=== PATIENT | female | born 1985 | race Caucasian/White ===

== ENCOUNTER 2021-11-29 03:59 | Inpatient (IN) ==
[2021-11-29] MEDS ORDERED: Naloxone 0.4 MG/ML INJ IVP PRN (04:01)
[2021-11-29] MEDS ORDERED: *HR* Nalbuphine 10 MG/ML AMPUL IV PRN (04:01)
[2021-11-29] MEDS ORDERED: Ondansetron 4 MG/2 ML VIAL IVP PRN (04:01)
[2021-11-29] MEDS ORDERED: Lidocaine 1% 20 ML MDV INFILT PRN (04:01)
[2021-11-29] MEDS ORDERED: miSOPROStoL 25 MCG TABLET PO PRN (04:01)
[2021-11-29] MEDS ORDERED: Famotidine 20 MG/2 ML VIAL IVP PRN (04:01)
[2021-11-29] MEDS ORDERED: Metoclopramide 10 MG/2 ML VIAL IVP PRN (04:01)
[2021-11-29 05:02] LABS: Basophils % 0.4 %; Eosinophils # 0.3 K/mcL (0.0-0.6); Eosinophils % 2.8 %; Hematocrit 35.6 % (35.3-44.9); Hemoglobin 11.4 g/dL (11.5-15.4); Immature Granulocytes % 1.5 % (0-4); Lymphocytes # 2.3 K/mcL (0.6-4.6); Lymphocytes % 21.5 %; Mean Corpuscular Hemoglobin 26.6 pg (28.0-33.3); Mean Corpuscular Volume 83.2 fL (83.0-100.0); Mean Platelet Volume 11.9 fL (9.4-12.4); Monocytes # 0.9 K/mcL (0.0-1.3); Monocytes % 7.8 %; Neutrophils # 7.2 K/mcL (1.6-8.9); Platelet Count 218 K/mcL (140-400); Red Blood Count 4.28 M/mcL (3.82-4.97); Red Cell Distribution Width 13.3 % (11.5-14.5); White Blood Count 10.9 K/mcL (4.3-11.1)
[2021-11-29 05:11] LABS: Amphetamine Screen,Urine Negative ng/mL (Cutoff=1000); Barbiturate Screen,Urine Negative ng/mL (Cutoff=200); Benzodiazepines Screen,Urine Negative ng/mL (Cutoff=200); Cannabinoid Screen,Urine Negative ng/mL (Cutoff = 50); Cocaine Screen,Urine Negative ng/mL (Cutoff= 300); Opiate Screen,Urine Negative ng/mL (Cutoff=300); Phencyclidine Screen,Urine Negative ng/mL (Cutoff=25)
[2021-11-29 05:41] LABS: Influenza A PCR Negative (Negative); Influenza B PCR Negative (Negative); Resp. Syncytial Virus PCR Negative (Negative)
[2021-11-29 05:45] LABS: SARS-CoV-2 by PCR (In House) Positive (Negative)
[2021-11-29] MEDS ORDERED: Penicillin G Potassium 5,000,000 UNIT in 0.9 % Sodium Chloride Mini Bag 100 ML IVPB ONE (06:06)
[2021-11-29] MEDS ORDERED: EPHEDrine 50 MG/ML VIAL IVP PRN (06:21)
[2021-11-29] MEDS: Ringers Solution, Lactated 1,000 ML IVC SCH ×2 (06:23→12:11)
[2021-11-29] MEDS ORDERED: Epidural Premix (fent/bupiv) 110 ML EP SCH (06:30)
[2021-11-29] MEDS ORDERED: Ondansetron 4 MG/2 ML VIAL ONE (08:16)
[2021-11-29] MEDS: Penicillin G Potassium 2,500,000 UNIT/105 ML MLS IVPB SCH ×2 (10:44→14:41)
[2021-11-29] MEDS ORDERED: *HR* Ropivacaine/PF 0.5% 20 ML VIAL ONE (11:48)
[2021-11-29] MEDS ORDERED: Ropivacaine/PF 0.2% 20 ML VIAL ONE (11:49)
[2021-11-29] MEDS ORDERED: Oxytocin 20 units/ LR 1000 mL 20 UNIT/1,000 ML BAG IVC SCH ×2 (12:00→17:49)
[2021-11-29] MEDS ORDERED: Terbutaline 1 MG/ML VIAL SQ ONE (13:11)
[2021-11-29] MEDS ORDERED: 0.9 % Sodium Chloride 1,000 ML ONE (13:30)
[2021-11-29] MEDS ORDERED: Ondansetron ODT 4 MG TAB.RAPDIS SL PRN (17:49)
[2021-11-29] MEDS ORDERED: Rho Immune Globulin 1,500 UNIT SYRINGE IM PRN (17:49)
[2021-11-29] MEDS ORDERED: Measles/Mumps/Rubella Vacc 0.5 ML VIAL SQ PRN (17:49)
[2021-11-29] MEDS ORDERED: Lanolin 7 G OINT...G. TP PRN (17:49)
[2021-11-29] MEDS: Ibuprofen 600 MG TABLET PO SCH (19:47)
[2021-11-29] MEDS: Acetaminophen 325 MG TABLET PO SCH (22:19)
[2021-11-30] MEDS: Ibuprofen 600 MG TABLET PO SCH ×3 (02:03→17:07)
[2021-11-30] MEDS: Acetaminophen 325 MG TABLET PO SCH ×2 (04:23→13:14)
[2021-11-30 04:58] LABS: Basophils % 0.1 %; Eosinophils # 0.2 K/mcL (0.0-0.6); Eosinophils % 1.2 %; Immature Granulocytes % 0.9 % (0-4); Lymphocytes # 1.9 K/mcL (0.6-4.6); Lymphocytes % 14.1 %; Mean Corpuscular HGB Conc 32.3 g/dL (31.6-35.5); Mean Corpuscular Hemoglobin 27.4 pg (28.0-33.3); Mean Corpuscular Volume 84.7 fL (83.0-100.0); Mean Platelet Volume 12.4 fL (9.4-12.4); Monocytes # 1.1 K/mcL (0.0-1.3); Monocytes % 8.3 %; Neutrophils # 10.3 K/mcL (1.6-8.9); Platelet Count 199 K/mcL (140-400); Red Blood Count 3.54 M/mcL (3.82-4.97); Red Cell Distribution Width 13.4 % (11.5-14.5); Segmented Neutrophils % 75.4 %; White Blood Count 13.7 K/mcL (4.3-11.1)
[2021-11-30 04:59] LABS: Hemoglobin 9.7 g/dL (11.5-15.4)
[2021-11-30] MEDS: Benzocaine/Menthol 56 GM AEROSOL SPRAY TP PRN ×2 (05:28→07:53)
[2021-11-30] MEDS ORDERED: Prenatal Vit/FA 1 EACH TABLET PO SCH (09:00)
[2021-11-30 10:08] VITALS: BP 114/68; PULSE 85; TEMP 97.6; O2SAT 95
== END 2021-11-30 17:20 | disposition home or self-care (01) | DRG 805 ==
LOC: 1NENULAB 03:59 → 1NENUOBS 18:51
PROVIDERS: ADMIT Student in an Organized Health Care Education/Training Program; ATTEND Student in an Organized Health Care Education/Training Program